=== PATIENT | female | born 1955 | race African-American/Black ===

== ENCOUNTER 2020-12-02 06:12 | Emergency (ER) | payer OTHER, BC ==
[~2020-12-02] VITALS: Ht 162.6 cm; Wt 74.8 kg
[2020-12-02 06:25] VITALS: BP_SYST 157
--- NOTE | 2020-12-02 06:25 | NUR ---
Patient ambulatory to bed 2 for evaluation. Changed to hospital gown and hooked to cont monitor
--- NOTE | 2020-12-02 06:26 | NUR ---
Received patient to Er w/ c/o right sided "throbbing/spasming h/a". Patient w/ c/o neuro focal deficits. a/o x4, lopez's purposefully. Introduced self to patient, positioned for comfort. Bed to low position sr up, continue to monitor.
--- NOTE | 2020-12-02 06:54 | NUR ---
ER at bedside examining patient.
[2020-12-02] MEDS ORDERED: KETOROLAC TROMETHAMINE 30 MG VIAL IM ONE (07:00)
--- NOTE | 2020-12-02 07:05 | NUR ---
Assumed care of patient, report received from CHAPARRITA Cha. Pt currently resting in bed, no distress noted.
--- NOTE | 2020-12-02 07:10 | NUR ---
Pt's BP 174/88, Dr. Claudio ordered Clonidine PO, pt declined med. aware.
[2020-12-02] MEDS ORDERED: cloNIDine HCL 0.1 MG TABLET PO ONE (07:30)
--- NOTE | 2020-12-02 08:20 | NUR ---
Patient given written and verbal discharge instructions and verbalizes understanding. ER MD discussed with patient the results and treatment provided. Patient in stable condition. ID arm band removed. Rx of [place] given. Patient educated on pain management and to follow up with PMD. Pain Scale 0. Opportunity for questions provided and answered. Medication side effect fact sheet provided.
[2020-12-02 08:22] VITALS: BP_SYST 131
== END 2020-12-02 08:22 | disposition home or self-care (01) ==
LOC: SED 06:12
DX: G44.209 Tension-type headache, unspecified, not intractable (principal)
CPT/HCPCS: 96372; 99283; J1885

== ENCOUNTER 2020-12-03 12:30 | Emergency (ER) | payer OTHER, BC ==
[~2020-12-03] VITALS: Ht 162.6 cm; Wt 79.4 kg
--- NOTE | 2020-12-03 12:50 | NUR ---
BIB SELF FROM HOME FOR HEAD. SEEN BY SURGEON TODAY AND DENIED SURGICAL INTERVENTION. ARRIVED WITH DAVIS X 3 DAYS, CALM, ALERT, RESP UNLABORED
--- NOTE | 2020-12-03 12:55 | NUR ---
DR CHURCH IN TO ASSESS
[2020-12-03] MEDS ORDERED: KETOROLAC TROMETHAMINE 60 MG/2 ML VIAL IM ONE (13:00)
[2020-12-03 13:10] VITALS: BP_SYST 105
--- NOTE | 2020-12-03 13:19 | NUR ---
MEDICATED ORDERED, TOLERATED WELL. CALM, ALERT, NO DISTRESS
[2020-12-03 13:28] VITALS: BP_SYST 112
--- NOTE | 2020-12-03 13:29 | NUR ---
Patient given written and verbal discharge instructions and verbalizes understanding. ER MD discussed with patient the results and treatment provided. Patient in stable condition. ID arm band removed. Rx of TRAMADOL given. Patient educated on pain management and to follow up with PMD. Pain Scale 3/10 Opportunity for questions provided and answered. Medication side effect fact sheet provided.
== END 2020-12-03 13:28 | disposition home or self-care (01) ==
LOC: SED 12:30
DX: R51.9 Headache, unspecified (principal)
CPT/HCPCS: 96372; 99283; J1885